=== PATIENT | male | born 1935 | race Caucasian/White ===

== ENCOUNTER 2017-03-03 08:08 | Emergency (ER) | payer OTHER ==
[~2017-03-03] VITALS: Ht 180.3 cm; Wt 78.2 kg
[2017-03-03 13:11] LABS: HEMATOCRIT 49.8 % (38.0-50.0); HEMOGLOBIN 16.7 G/DL (12.5-16.6); MCH 31.2 PG (29.0-34.0); MCHC 33.5 G/DL (30.0-36.0); MCV 93.1 FL (86-99); PLATELET COUNT 307 K/uL (156-360); RBC DIS.WIDTH-CV 12.3 % (11.8-14.6); RBC DIS.WIDTH-SD 42.3 % (39-53); RED BLOOD COUNT 5.35 M/uL (4.00-5.50); WHITE BLOOD COUNT 9.4 K/uL (4.1-10.2)
[2017-03-03 13:19] LABS: CHLORIDE 106 mEq/L (99-109); POTASSIUM 4.5 mEq/L (3.7-5.4); SODIUM 144 mEq/L (136-147)
[2017-03-03 13:20] LABS: GLUCOSE 165 mg/dL (70-99)
[2017-03-03 13:24] LABS: CREATININE 2.2 mg/dL (0.6-1.3); GFR ESTIMATE (CALCULATED) 31 mL/min/ (58.99-99999)
[2017-03-03 13:25] LABS: UREA NITROGEN (BUN) 25 mg/dL (9-23)
[2017-03-03 13:31] LABS: TROP-I INTERPRETATION NEGATIVE; TROPONIN-I 0.02 ng/mL (0.0-0.30)
[2017-03-03 18:40] VITALS: BP 139/67
== END 2017-03-03 18:40 | disposition home or self-care (01) ==
LOC: EME 08:08
PROVIDERS: Nurse Practitioner Family
DX: I70.203 Unspecified atherosclerosis of native arteries of extremities, bilateral legs (principal); M19.012 Primary osteoarthritis, left shoulder; R20.0 Anesthesia of skin; N28.9 Disorder of kidney and ureter, unspecified; F17.200 Nicotine dependence, unspecified, uncomplicated
CPT/HCPCS: 70450; 71046; 72050; 80048; 83880; 84484; 85027; 93005; 93925; 99281; 99284

== ENCOUNTER → 2017-08-03 | Outpatient (CLI) | payer MEDICARE, OTHER | END | disposition home or self-care (01) | LOC: CDC 09:33 | DX: I49.1 Atrial premature depolarization (principal); I45.10 Unspecified right bundle-branch block | CPT/HCPCS: 93000 ==

== ENCOUNTER 2017-09-05 12:27 | Emergency (ER) | payer OTHER ==
[~2017-09-05] VITALS: Ht 177.8 cm; Wt 78.3 kg
[2017-09-05 15:17] VITALS: BP 130/74
== END 2017-09-05 15:18 | disposition home or self-care (01) ==
LOC: EME 12:27
PROC: 0HQ7XZZ Repair Abdomen Skin, External Approach (ICD-10-PCS; principal; 2017-09-05)
DX: L76.22 Postprocedural hemorrhage of skin and subcutaneous tissue following other procedure (principal); Z98.62 Peripheral vascular angioplasty status; Z98.890 Other specified postprocedural states; F17.200 Nicotine dependence, unspecified, uncomplicated
CPT/HCPCS: 99281; 99284